=== PATIENT | male | born 1950 | race Two or more races ===

== ENCOUNTER 2019-10-15 11:13 | Emergency (ER) | payer MEDICARE ==
[2019-10-15] VITALS (7 sets, daily range): BP systolic 112–132; BP diastolic 58–79
[~2019-10-15] VITALS: Ht 162.6 cm; Wt 70.3 kg
[2019-10-15 11:56] LABS: HEMATOCRIT 39.1 % (42.0-52.0); HEMOGLOBIN 12.6 G/DL (14.2-18.0); MEAN CORPUSCULAR VOLUME 80 FL (80-99); PLATELET COUNT 308 K/UL (150-450); RED CELL DISTRIBUTION WIDTH 13.5 % (11.6-14.8)
[2019-10-15 12:06] LABS: ANION GAP 11 mmol/L (5-15); BLOOD UREA NITROGEN 13 mg/dL (7-18); CALCIUM 8.7 MG/DL (8.5-10.1); CARBON DIOXIDE 24 MMOL/L (21-32); CHLORIDE 92 MMOL/L (98-107); CREATININE 0.9 MG/DL (0.55-1.30); SODIUM 127 MMOL/L (136-145)
[2019-10-15 12:11] LABS: ALANINE AMINOTRANSFERASE 171 U/L (12-78); ALBUMIN 3.1 G/DL (3.4-5.0); ALBUMIN/GLOBULIN RATIO 0.7 (1.0-2.7); ALKALINE PHOSPHATASE 647 U/L (46-116); ASPARTATE AMINO TRANSFERASE 208 U/L (15-37); BILIRUBIN,TOTAL 0.9 MG/DL (0.2-1.0)
[2019-10-15] MEDS ORDERED: Omnipaque-300 100ml vial INJ ONE (12:30)
--- NOTE | 2019-10-15 13:30 | NUR ---
ED Nurse Note: Patient arrived from home complaining of nausea and vomiting x 2 days. Patient has had decreased appetite. Emesis has been clear and had undigested food. Patient has no complaints of pain. Patient on the monitoring tech, bed in lowest position. Daughter at bedside.
[2019-10-15 13:51] LABS: APPEARANCE,URINE CLEAR; BILIRUBIN, URINE NEGATIVE (NEGATIVE); COLOR,URINE PALE YELLOW; GLUCOSE, URINE (UA) NEGATIVE (NEGATIVE); KETONES,URINE 4+ (NEGATIVE); LEUKOCYTE ESTERASE ,URINE NEGATIVE (NEGATIVE); NITRITE,URINE NEGATIVE (NEGATIVE); PH,URINE 7 (4.5-8.0); PROTEIN,URINE NEGATIVE (NEGATIVE); UROBILINOGEN,URINE NORMAL MG/DL (0.0-1.0)
--- NOTE | 2019-10-15 14:59 | Emergency Room Report ---
History of Present Illness General Chief Complaint: Vomiting Source: Patient, Family Member Present Illness HPI 69-year-old male presents ED for evaluation. Brought in by family for reduced appetite, weakness, spitting up phlegm for the last several days. 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 Was seen at [facility] and is currently waiting for outpatient evaluation and treatment. States that since then he has had reduced appetite has had difficulty swallowing solids and liquids. Denies cough. Denies fevers or chills. Denies chest pain. No other aggravating relieving factors. Denies any other associated symptoms Allergies: Coded Allergies: No Known Allergies (Unverified , 10/15/19) Patient History Past Medical History: other - cancer? Past Surgical History: none Pertinent Family History: none Social History: Denies: smoking, alcohol use, drug use Immunizations: UTD Reviewed Nursing Documentation: PMH: Agreed; PSxH: Agreed Nursing Documentation-PMH Past Medical History: No History, Except For Review of Systems All Other Systems: negative except mentioned in HPI Physical Exam Vital Signs Date Time Temp Pulse Resp B/P (MAP) Pulse Ox O2 Delivery O2 Flow Rate FiO2 10/15/19 11:23 97.7 74 19 128/65 (86) 96 Room Air Sp02 EP Interpretation: reviewed, normal General Appearance: no apparent distress, GCS 15, non-toxic, lethargic, thin Head: normocephalic, atraumatic Eyes: bilateral eye normal inspection, bilateral eye PERRL ENT: hearing grossly normal, normal pharynx, no angioedema, normal voice Neck: full range of motion, supple/symm/no masses Respiratory: chest non-tender, lungs clear, normal breath sounds, speaking full sentences Cardiovascular #1: regular rate, rhythm, no edema Cardiovascular #2: 2+ carotid (R), 2+ carotid (L), 2+ radial (R), 2+ radial (L) , 2+ dorsalis pedis (R), 2+ dorsalis pedis (L) Gastrointestinal: normal bowel sounds, non tender, soft, non-distended, no guarding, no rebound Rectal: deferred Genitourinary: normal inspection, no CVA tenderness Musculoskeletal: back normal, normal range of motion, gait/station normal, non- tender Neurologic: alert, motor strength/tone normal, oriented x3, sensory intact, responsive, speech normal Psychiatric: judgement/insight normal, memory normal, mood/affect normal, no suicidal/homicidal ideation Reflexes: 3+ bicep (R), 3+ bicep (L), 3+ tricep (R), 3+ tricep (L), 3+ knee (R) , 3+ knee (L) Skin: other - see nursing skin notes Lymphatic: no adenopathy Medical Decision Making Labs Test 10/15/19 11:40 10/15/19 13:30 White Blood Count 11.0 K/UL (4.8-10.8) Red Blood Count 4.90 M/UL (4.70-6.10) Hemoglobin 12.6 G/DL (14.2-18.0) Hematocrit 39.1 % (42.0-52.0) Mean Corpuscular Volume 80 FL (80-99) Mean Corpuscular Hemoglobin 25.8 PG (27.0-31.0) Mean Corpuscular Hemoglobin Concent 32.3 G/DL (32.0-36.0) Red Cell Distribution Width 13.5 % (11.6-14.8) Platelet Count 308 K/UL (150-450) Mean Platelet Volume 5.5 FL (6.5-10.1) Neutrophils (%) (Auto) % (45.0-75.0) Lymphocytes (%) (Auto) % (20.0-45.0) Monocytes (%) (Auto) % (1.0-10.0) Eosinophils (%) (Auto) % (0.0-3.0) Basophils (%) (Auto) % (0.0-2.0) Differential Total Cells Counted 100 Neutrophils % (Manual) 85 % (45-75) Lymphocytes % (Manual) 10 % (20-45) Monocytes % (Manual) 5 % (1-10) Eosinophils % (Manual) 0 % (0-3) Basophils % (Manual) 0 % (0-2) Band Neutrophils 0 % (0-8) Platelet Estimate Adequate Platelet Morphology Normal Red Blood Cell Morphology Normal Sodium Level 127 MMOL/L (136-145) Potassium Level 4.0 MMOL/L (3.5-5.1) Chloride Level 92 MMOL/L (98-107) Carbon Dioxide Level 24 MMOL/L (21-32) Anion Gap 11 mmol/L (5-15) Blood Urea Nitrogen 13 mg/dL (7-18) Creatinine 0.9 MG/DL (0.55-1.30) Estimat Glomerular Filtration Rate mL/min (>60) Glucose Level 91 MG/DL (74-106) Calcium Level 8.7 MG/DL (8.5-10.1) Total Bilirubin 0.9 MG/DL (0.2-1.0) Aspartate Amino Transf (AST/SGOT) 208 U/L (15-37) Alanine Aminotransferase (ALT/SGPT) 171 U/L (12-78) Alkaline Phosphatase 647 U/L (46-116) Total Protein 7.3 G/DL (6.4-8.2) Albumin 3.1 G/DL (3.4-5.0) Globulin 4.2 g/dL Albumin/Globulin Ratio 0.7 (1.0-2.7) Lipase 98 U/L (73-393) Urine Color Pale yellow Urine Appearance Clear Urine pH 7 (4.5-8.0) Urine Specific [place] 1.010 (1.005-1.035) Urine Protein Negative (NEGATIVE) Urine Glucose (UA) Negative (NEGATIVE) Urine Ketones 4+ (NEGATIVE) Urine Blood Negative (NEGATIVE) Urine Nitrite Negative (NEGATIVE) Urine Bilirubin Negative (NEGATIVE) Urine Urobilinogen Normal MG/DL (0.0-1.0) Urine Leukocyte Esterase Negative (NEGATIVE) Last Vital Signs Date Time Temp Pulse Resp B/P (MAP) Pulse Ox O2 Delivery O2 Flow Rate FiO2 10/15/19 13:15 97.9 87 18 128/75 97 Room Air Status: improved Disposition: ADMITTED INPATIENT Condition: Serious Scripts No Active Prescriptions or Reported Meds Referrals: NOT CHOSEN IPA/,REFERRING (PCP) Meliton Fuentes MD Oct 15, 2019 14:59
--- NOTE | 2019-10-15 15:02 | Diagnostic Imaging Report ---
Indication: Dysphasia, neck mass Technique: CT of the neck utilizing automated exposure control with intravenous contrast. Venous scanning performed. Axial, sagittal and coronal reformats presented. CT dose: Total DLP 1795 mGycm; CTDI vol 127 mGy Comparison: None Findings: The airway is patent. The epiglottis is normal. There is no significant cervical lymphadenopathy. Thyroid is normal in appearance. The bilateral carotid and vertebral arteries are patent and without evidence of significant stenosis, occlusion or dissection. The right submandibular gland appears slightly atrophic. There are multilevel degenerative changes of the spine. No destructive aggressive bone lesion. There is dilatation of the esophagus related to the mass lesion described on the concurrent CT of the chest. Innumerable pulmonary nodules compatible with metastatic disease and pulmonary emboli involving segmental and subsegmental arteries of the right upper lobe noted, as described on CT of the chest. IMPRESSION: * Esophageal dilatation with air-fluid level related to mass in the distal esophagus described on chest CT. * Innumerable pulmonary nodules and segmental and subsegmental emboli involving pulmonary arteries the right upper lobe, also described on concurrent chest CT. * No significant cervical lymphadenopathy. Airway is patent. This corresponds with the preliminary report by the teleradiology service. The CT scanner at [facility] is accredited by the [employer] and the scans are performed using protocols designed to limit radiation exposure to as low as reasonably achievable to attain images of sufficient resolution adequate for diagnostic evaluation.
--- NOTE | 2019-10-15 15:18 | Diagnostic Imaging Report ---
Indication: Abdominal pain, shortness of breath, dysphagia, history of neck mass Technique: CT of the chest, abdomen and pelvis utilizing automated exposure control with intravenous contrast. Venous scanning performed. Axial, sagittal and coronal reformats presented. CT dose: Total DLP 1795 mGycm; CTDI vol 127 mGy Comparison: None Findings: CT chest: There is a pulmonary embolism with filling defect involving segmental and subsegmental pulmonary arteries to the right upper lobe. The main pulmonary artery is normal in caliber. There is linear filling defect within the superior vena cava which may be artifact related to the confluence of the azygos vein however thrombus is not excluded. There is no CT evidence of right heart strain. There is no pericardial effusion. Vascularity is normal in caliber with very mild atherosclerotic calcification. No thoracic aortic aneurysm or dissection. Visualized portions of the great vessels appear patent. There are innumerable rounded pulmonary masses compatible with metastatic disease given history. There is some subsegmental atelectasis in the right lower lobe. There is trace pleural fluid. There is mass involving the distal esophagus with marked wall thickening and associated obstruction with upstream dilatation of the esophagus. Soft tissue partially encases portions of the descending thoracic aorta. There is local mass effect on the left atrium. There are numerous paraesophageal nodularity/lymph nodes. CT abdomen and pelvis: Multiple heterogeneous masses are noted within the liver compatible with metastatic disease with enhancing foci versus internal hemorrhage. Visualized main portal vein appears patent although there is mass effect on intrahepatic portal vein radicals. Spleen, adrenal glands and pancreas unremarkable. Small probable cysts noted in the kidneys. No hydronephrosis. Renal enhancement is symmetric. Bladder is unremarkable. There is no evidence of small bowel obstruction. There is mild retained colonic stool. There is no free intraperitoneal air. There is a small amount of hyperdense fluid in the right pelvis concerning for abdominal hemorrhage of uncertain origin, possibly related to hemorrhage from hepatic metastatic focus. Small fat-containing umbilical hernia. There is scoliosis and multilevel degenerative changes of the spine. Small sclerotic focus in the T11 vertebral body favored to represent a bone island however additional etiologies not excluded given extensive metastatic disease. No destructive bone lesion identified. COMBINED IMPRESSION: * Mass in the distal esophagus with marked thickening of the wall resulting in distal esophageal obstruction with upstream esophageal dilatation with air-fluid level. Mass partially encases the mid descending thoracic aorta. * Pulmonary emboli involving segmental and subsegmental pulmonary arteries in the right upper lobe. * Innumerable bilateral lung nodules/masses and extensive masses throughout the liver consistent with metastatic disease. Hepatic masses are heterogeneous with internal enhancing foci or hemorrhage. * Small amount of hyperdense fluid in the right pelvis concerning for hemorrhagic fluid, origin not clearly delineated but possibly related to hemorrhage from one of the metastatic lesions in the liver although additional sources not excluded. Additional findings as above. This corresponds with the preliminary report by the teleradiology service. Critical findings communicated to the treating ER clinician, as documented in the preliminary report. The CT scanner at [facility] is accredited by the [employer] and the scans are performed using protocols designed to limit radiation exposure to as low as reasonably achievable to attain images of sufficient resolution adequate for diagnostic evaluation.
--- NOTE | 2019-10-15 16:35 | NUR ---
ED Nurse Note: Patient resting in bed, no s/s of acute distress. Daughter at bedside. Patient on the cardiac exercise specialist, bed in lowest position. VSS.
--- NOTE | 2019-10-15 17:50 | Diagnostic Imaging Report ---
Indication: Headache, esophageal mass Technique: Continuous helical CT scanning of the head was performed utilizing automated exposure control without intravenous contrast material. Axial and coronal reconstructions were obtained. Comparison: None CT dose: Total DLP 1274.1 mGycm; CTDI vol 60 mGy Findings: There are several dense intracranial masses, at least some of which appear intra-axial. The largest mass is abutting the falx in the posterior superior left frontal region and measures approximately 3.5 cm. There is associated vasogenic edema extending into the left-sided corpus callosum. There is mass effect with narrowing of the left lateral ventricle and mild subfalcine herniation of approximately 6 mm. The next largest lesion is located in the left occipital lobe and measures approximately 2.7 cm, also associated edema. A least 2 smaller lesions identified, one in the right frontal lobe and another in the left posterior temporal lobe. Several of these masses are mixed density, partially hyperdense potentially reflecting intratumoral hemorrhage. No extra-axial hemorrhage is identified. No obvious evidence of acute territorial infarct. The basal cisterns remain patent. The calvarium is intact. Mastoid air cells and visualized paranasal sinuses are well-aerated. The orbits are intact. IMPRESSION: Multiple intracranial masses compatible with metastatic deposits with associated mass effect as detailed above. Several of the masses are mixed density suspicious for intratumoral hemorrhage. This corresponds with the preliminary report by the teleradiology service. Critical findings communicated to the treating ER clinician, as documented in the preliminary report. The CT scanner at [facility] is accredited by the [employer] and the scans are performed using protocols designed to limit radiation exposure to as low as reasonably achievable to attain images of sufficient resolution adequate for diagnostic evaluation.
--- NOTE | 2019-10-15 18:45 | Emergency Room Report ---
Physical Exam Vital Signs Date Time Temp Pulse Resp B/P (MAP) Pulse Ox O2 Delivery O2 Flow Rate FiO2 10/15/19 11:23 97.7 74 19 128/65 (86) 96 Room Air Medical Decision Making ER Course Signout received from Dr. Fuentes to follow-up PT, PTT, and INR and CT head results. In brief this is a 69-year-old male who has esophageal carcinoma pending further evaluation by oncology. He presented to the emergency room for decreased appetite, weakness and spitting up phlegm. He had a CT performed showing right upper lobe segmental and subsegmental pulmonary embolus., Thickening and mass of distal esophagus, distal esophageal obstruction with dilated esophagus and air-fluid level, mass- effect on cardiac atrium concerning for neoplasm. Case was discussed with inpatient Dr. Smiley regarding admission who recommended obtaining a CT had due to his extensive disease and concern for intracranial hemorrhage. Head CT was performed at 1547 with preliminary findings given at 1745 showing several dense intracranial masses with mixed density concerning for intra- tumoral hemorrhage. Also associated mass-effect with narrowing of left lateral ventricle and mild subfalcine herniation of [address] mm[address] Informed family of CT findings and likely need for transfer to a facility that has specialty care such as neurology. Family mentioned his initial testing was done at [facility] and would like to be transferred there. 184 Case discussed with transfer center 1930 -Pt accepted by Dr Edwardo Hernandez Last Vital Signs Date Time Temp Pulse Resp B/P (MAP) Pulse Ox O2 Delivery O2 Flow Rate FiO2 10/15/19 18:18 97.9 77 17 125/67 97 Room Air Disposition: ADMITTED INPATIENT Condition: Serious Scripts No Active Prescriptions or Reported Meds Referrals: NOT CHOSEN BUSTER/,REFERRING (PCP) Nahum Corrales M.D. Oct 15, 2019 18:45
--- NOTE | 2019-10-15 19:03 | NUR ---
HAND-OFF: Report given to Gretchen HURT.
--- NOTE | 2019-10-15 19:05 | NUR ---
ED Nurse Note: Received report from LICHA Zarco.
--- NOTE | 2019-10-15 20:19 | NUR ---
ED Nurse Note: Called [facility] to give report, nurse unavailable d/t med pass, will call again.
--- NOTE | 2019-10-15 20:39 | NUR ---
ED Nurse Note: Report given to LICHA Vela at [facility].
--- NOTE | 2019-10-15 21:45 | NUR ---
ER DISCHARGE NOTE: Patient cleared for transfer per ERMD. Report given to [place], RN and [facility] ambulance personnel. Patient stable upon transfer accompanied by ambulance personnel.
== END 2019-10-15 21:45 | disposition short-term general hospital (02) ==
LOC: EMR 12:24 → EDBEDREQSVC 15:24 → EDBEDREQ 15:24 → EMR 21:45
DX: C15.9 Malignant neoplasm of esophagus, unspecified (principal); R53.1 Weakness; I26.93 Single subsegmental thrombotic pulmonary embolism without acute cor pulmonale
CPT/HCPCS: 36415; 70450; 70491; 71260; 74177; 80053; 81003; 83690; 85007; 85025; 85610; 85730; 86850; 86900; 86901; 96360; 99284; Q9967